=== PATIENT | female | born 1945 | race Caucasian/White ===

== ENCOUNTER 2016-08-28 09:27 | Outpatient (CLI) | payer MEDICARE ==
--- NOTE | 2016-08-28 14:27 | MRI ---
BRAIN MRI WITHOUT CONTRAST: DATE: 08/28/16. COMPARISON: None. HISTORY: Memory difficulties. TECHNIQUE: Multiplanar, multisequence MR imaging of the brain is obtained without contrast. FINDINGS: The diffusion weighted imaging demonstrates no evidence for acute infarction. There are scattered foci of increased T2 and FLAIR signal within the periventricular, deep, and subc ortical white matter, evidence of small-vessel disease. Metallic artifact overlies the upper cervical spine suggesting prior cervical spine surgery. Arteri al flow voids at the axial level of the skull base appear grossly unremarkable on the T2 weighted im aging. There is moderate diffuse cerebral volume loss with associated prominence of the CSF contain ing spaces. Imaged paranasal sinuses/mastoid air cells appear grossly unremarkable. IMPRESSION: Small-vessel disease. No acute infarction. POS: JOE
== END 2016-08-28 09:28 | disposition home or self-care (01) ==
LOC: BURMRI 09:27
PROVIDERS: ATTEND Psychiatry & Neurology Neurology
DX: R41.3 Other amnesia (principal)
CPT/HCPCS: 70551

== ENCOUNTER 2016-09-11 13:14 | Outpatient (CLI) | payer MEDICARE | END 2016-09-11 13:15 | LOC: LABLEX 13:14 | PROVIDERS: ATTEND Family Medicine | DX: R82.90 Unspecified abnormal findings in urine (principal) | CPT/HCPCS: 87086 ==

== ENCOUNTER 2016-09-12 13:21 | Outpatient (CLI) | payer MEDICARE | END 2016-09-12 13:22 | disposition home or self-care (01) | LOC: BURLAB 13:21 | PROVIDERS: ATTEND Family Medicine | DX: Z72.89 Other problems related to lifestyle (principal) | CPT/HCPCS: 36415; 86803 ==

== ENCOUNTER 2016-09-22 09:22 | Outpatient (CLI) | payer MEDICARE ==
--- NOTE | 2016-09-22 20:58 | ULT ---
PELVIC ULTRASOUND: 09/22/16 Ultrasonography of the pelvis was performed transabdominally. Documentary images and worksheets were provided and reviewed. The patient has had a hysterectomy. No adnexal masses or obvious ovarian tissue was seen. No free fluid is present. The urinary bladder was acceptably full and while not seen optimally, contained no obvious internal masses. IMPRESSION: No significant pelvic finding. POS: HOME
== END 2016-09-22 09:23 | disposition home or self-care (01) ==
LOC: BURULT 09:22
PROVIDERS: ATTEND Family Medicine
DX: N32.81 Overactive bladder (principal)
CPT/HCPCS: 76856; 76857

== ENCOUNTER 2017-05-07 08:58 | Outpatient (CLI) | payer MEDICARE ==
[2017-05-07 18:54] LABS: ALT (SGPT) 11 U/L (8-55); AST (SGOT) 18 U/L (5-34); Albumin 4.2 g/dL (3.4-4.8); Alkaline Phosphatase 54 U/L (40-150); Anion Gap 11 mmol/L (10-20); BUN (Urea Nitrogen) 16 mg/dL (9.8-20.1); Bilirubin, Total 0.7 mg/dL (0.2-1.2); Calc. Creatinine Clearance 0 mL/min (70-130); Calcium 9.6 mg/dL (7.8-10.44); Carbon Dioxide 26 mmol/L (23-31); Cardiac Risk 2.5 (Less than 4.5); Chloride 106 mmol/L (98-107); Cholesterol 155 mg/dl (< 200 Desired); Estimated GFR-MDRD 72; Globulin 2.6 g/dL (2.4-3.5); Glucose 97 mg/dL (83-110); HDL Cholesterol 61 mg/dL (>60 Neg Risk); LDL Cholesterol, Calculated 70 mg/dL; Potassium 4.2 mmol/L (3.5-5.1); Protein, Total 6.8 g/dL (6.0-8.3); Sodium 139 mmol/L (136-145); Triglycerides 122 mg/dL (Less than 150)
== END 2017-05-07 08:59 | disposition home or self-care (01) ==
LOC: LABLEX 08:58
PROVIDERS: ATTEND Nurse Practitioner
DX: E78.5 Hyperlipidemia, unspecified (principal); E89.2 Postprocedural hypoparathyroidism
CPT/HCPCS: 80053; 80061; 83970; 84443